=== PATIENT | male | born 1995 | race African-American/Black ===

== ENCOUNTER 2023-03-05 21:21 | Emergency (ER) | payer OTHER ==
[2023-03-05] MEDS ORDERED: KETOROLAC 15 MG/ML 1 ML VIAL IM STA (21:41)
[2023-03-05 22:04] VITALS: RESP 18
--- NOTE | 2023-03-05 23:09 | XR ---
EXAM: XR Left Clavicle Complete, 2 or More Views CLINICAL HISTORY: ITS.REASON XR Reason: injury TECHNIQUE: Frontal and lordotic views of the left clavicle. COMPARISON: No relevant prior studies available. FINDINGS: Bones/joints: No acute fracture. No dislocation. Soft tissues: Unremarkable. IMPRESSION: Normal left clavicle x-rays.
--- NOTE | 2023-03-05 23:09 | XR ---
EXAM: XR Left Shoulder Complete, 2 or More Views CLINICAL HISTORY: ITS.REASON XR Reason: injury TECHNIQUE: Two or more views of the left shoulder. COMPARISON: No relevant prior studies available. FINDINGS: Bones/joints: No acute fracture. No dislocation. Soft tissues: Unremarkable. IMPRESSION: Normal left shoulder x-rays.
--- NOTE | 2023-03-05 23:21 | ED ---
Upper Extremity HPI - General Chief Complaint: Extremity Injury, Upper Stated Complaint: Left Shoulder Injury Time Seen by Provider: 03/05/23 21:29 Source: patient Mode of arrival: ambulatory Limitations: no limitations - History of Present Illness Initial Comments: 27-year-old female presenting with chief complaint of left shoulder injury. Patient was playing basketball when another person ran into him. He is now experiencing pain along the clavicle and shoulder. He still has range of motion but admits to pain with range of motion. No numbness or tingling. He has no pain at the level of the wrist or elbow. - Related Data Allergies Allergy/AdvReac Type Severity Reaction Status Date / Time No Known Allergies Allergy Verified 03/05/23 21:53 Review of Systems ROS Statement: Those systems with pertinent positive or pertinent negative responses have been documented in the HPI. ROS Other: All systems not noted in ROS Statement are negative. Past Medical History Past Medical History: No Reported History History of Any Multi-Drug Resistant Organisms: None Reported Past Surgical History: No Surgical Hx Reported Past Psychological History: No Psychological Hx Reported Smoking Status: Never smoker Past Alcohol Use History: Rare Past Drug Use History: None Reported General Exam Limitations: no limitations General appearance: alert, in no apparent distress Head exam: Present: atraumatic, normocephalic Eye exam: Present: normal appearance Neck exam: Present: normal inspection Respiratory exam: Absent: respiratory distress Cardiovascular Exam: Present: regular rate Left Shoulder Exam: Present: normal inspection, tenderness. Absent: full ROM (Limited secondary to pain), swelling, deformity Upper Arm exam: Present: normal inspection Elbow exam: Present: normal inspection Forearm Wrist exam: Present: normal inspection Hand Wrist exam: Present: normal inspection Vascular: Absent: vascular compromise Neurological exam: Present: alert, oriented X3 Skin exam: Present: warm, dry Course Vital Signs 03/05/23 03/05/23 21:23 23:27 Temperature 98.3 F 98.0 F Pulse Rate 96 79 Respiratory 18 18 Rate Blood Pressure 134/65 135/68 O2 Sat by Pulse 97 98 Oximetry Medical Decision Making - Medical Decision Making Was pt. sent in by a medical professional or institution (, PA, [employer], urgent care, hospital, or jail...) When possible be specific @ -No Did you speak to anyone other than the patient for history (EMS, parent, family, police, friend...)? What history was obtained from this source @ -No Did you review nursing and triage notes (agree or disagree)? Why? @ -I reviewed and agree with nursing and triage notes Were old charts reviewed (outside hosp., previous admission, EMS record, old EKG, old radiological studies, urgent care reports/EKG's, jail records)? Report findings @ -No old charts were reviewed Differential Diagnosis (chest pain, altered mental status, abdominal pain women, abdominal pain men, vaginal bleeding, weakness, fever, dyspnea, syncope, headache, dizziness, GI bleed, back pain, seizure, CVA, palpatations, mental health, musculoskeletal)? @ -Differential Musculoskeletal Muscular strain, contusion, ligament sprain, fracture, arthritis, septic arthritis, bursitis, cellulitis, muscle spasm, nerve compression, DVT, arterial occlusion, herpes zoster, electrolyte abnormality, tumor.... This is not meant to be in all inclusive list EKG interpreted by me (3pts min.). @ -As above X-rays interpreted by me (1pt min.). @ -X-rays of the shoulder and clavicle show no acute osseous process CT interpreted by me (1pt min.). @ -None done U/S interpreted by me (1pt. min.). @ -None done What testing was considered but not performed or refused? (CT, X-rays, U/S, labs)? Why? @ -None What meds were considered but not given or refused? Why? @ -None Did you discuss the management of the patient with other professionals (professionals i.e. , PA, [employer], lab, RT, psych nurse, secondary social studies teacher, qa architect, teacher, asset protection officer, case managers)? Give summary @ -No Was smoking cessation discussed for >3mins.? @ -No Was critical care preformed (if so, how long)? @ -No Were there social determinants of health that impacted care today? How? (Homelessness, low income, unemployed, alcoholism, drug addiction, transportation, low edu. Level, literacy, decrease access to med. care, alf, rehab)? @ -No Was there de-escalation of care discussed even if they declined (Discuss DNR or withdrawal of care, Hospice)? DNR status @ -No What co-morbidities impacted this encounter? (DM, HTN, Smoking, COPD, CAD, Cancer, CVA, ARF, Chemo, Hep., AIDS, mental health diagnosis, sleep apnea, morbid obesity)? @ -None Was patient admitted / discharged? Hospital course, mention meds given and route, prescriptions, significant lab abnormalities, going to OR and other pertinent info. @ -27-year-old male presenting with chief complaint of left-sided shoulder and clavicle pain after an injury at basketball today. He is neurovascularly intact. X-rays show no acute osseous abnormality. Patient is given Toradol for pain and reports improvement in his pain on reassessment. He is provided with a sling and educated on supportive management at home. Follow-up with PCP. Report back to ER with any new or worsening symptoms. Discussed return parameters and answered all questions. Patient conveyed verbal understanding and agreed to the plan. I discussed this case in detail with my attending Dr. Chapin Undiagnosed new problem with uncertain prognosis? @ -No Drug Therapy requiring intensive monitoring for toxicity (Heparin, Nitro, Insulin, Cardizem)? @ -No Were any procedures done? @ -No Diagnosis/symptom? @ -Shoulder sprain Acute, or Chronic, or Acute on Chronic? @ -acute Uncomplicated (without systemic symptoms) or Complicated (systemic symptoms)? @ -Uncomplicated Side effects of treatment? @ -No Exacerbation, Progression, or Severe Exacerbation? @ -No Poses a threat to life or bodily function? How? (Chest pain, [place], [place], pneumonia, PE, COPD, DKA, ARF, appy, cholecystitis, CVA, Diverticulitis, Homicidal, Suicidal, threat to staff... and all critical care pts) @ -No Disposition Clinical Impression: Strain of shoulder Disposition: HOME SELF-CARE Condition: Good Instructions (If sedation given, give patient instructions): Rotator Cuff Injury (ED) Additional Instructions: Follow-up with PCP. Report back to ER if any new or worsening symptoms. Alternate Motrin and Tylenol as needed for pain control. Rest and ice the shoulder. Is patient prescribed a controlled substance at d/c from ED?: No Referrals: None,Stated [Primary Care Provider] - 1-[facility] days [facility] - [facility]-2 days Time of Disposition: 23:21
[2023-03-05 23:38] VITALS: BP 135/68; PULSE 79; TEMP 98
== END 2023-03-05 23:29 | disposition home or self-care (01) ==
LOC: EC 21:21
DX: S46.912A Strain of unspecified muscle, fascia and tendon at shoulder and upper arm level, left arm, initial encounter (principal); X58.XXXA Exposure to other specified factors, initial encounter; Y93.67 Activity, basketball
CPT/HCPCS: 73030; 73000; 99283; 96372; J1885